=== PATIENT | male | born 1965 | race Caucasian/White ===

== ENCOUNTER 2019-09-12 11:33 | Emergency (ER) | payer OTHER, SELFPAY ==
[2019-09-12 11:39] VITALS: BP 152/95; PULSE 88; RESP 15; TEMP 36.2; O2SAT 98; BMI 23.3
--- NOTE | 2019-09-12 11:53 | PC.NURSE ---
Pts wound irrigated and 3 kaveh placed by Ami Avalos
--- NOTE | 2019-09-12 11:55 | ED.HEATRA ---
HPI - Head Injury <NIMO Jose - Last Filed: 09/12/19 12:05> General Chief complaint: Head Injury Stated complaint: hit head Time Seen by Provider: 09/12/19 11:36 Source: patient Mode of arrival: Ambulatory Limitations: no limitations History of Present Illness HPI Narrative: 54-year-old healthy male presents to emergency department complaining of laceration to the back of his head. He states he slipped on the stairs about an hour ago and hit the back of his head on the stairs. He denies any syncope, vomiting, dizziness, neck pain, diarrhea, abdominal pain, chest pain, shortness of breath, or other concerns. Fall was not witnessed. He was able to get up from the fall immediately. He reports a small laceration on a the back of his head, a friend cleaned and irrigated the wound. Patient denies taking any blood thinners. Related Data Allergies Allergy/AdvReac Type Severity Reaction Status Date / Time naproxen [From ALEVE] Allergy Unknown Verified 09/12/19 11:39 Review of Systems <NIMO Jose - Last Filed: 09/12/19 12:05> Review of Systems Narrative: REVIEW OF SYSTEMS: GENERAL: Denies fever or chills. HENT: Reports head laceration, see HPI EYES: No loss of vision, double vision, eye pain, or irritation. CARDIOVASCULAR: No chest pain or syncope. RESPIRATORY: No shortness of breath or cough. GASTROINTESTINAL: No nausea, vomiting, diarrhea, or constipation. GENITOURINARY: No flank pain or dysuria. MUSCULOSKELETAL: No pain, weakness, or deformities. INTEGUMENTARY: No rash, lesions, or pruritus. NEURO: No numbness, tingling, memory loss, or confusion. PSYCH: No behavior or mood changes. Patient History <NIMO Jose - Last Filed: 09/12/19 12:05> Medical History Lyme disease (Chronic) Surgical History History of vasectomy Family History Mother Age: 82 Heart disease Social History Smoking Status: Never smoker Smoking Status: Never smoker alcohol intake frequency: holidays/special occasions only Substance Use Type: does not use Exam <NIMO Jose - Last Filed: 09/12/19 12:05> Initial Vital Signs Initial Vital Signs: Vital Signs Temperature 97.1 F L 09/12/19 11:39 Pulse Rate 88 09/12/19 11:39 Respiratory Rate 15 09/12/19 11:39 Blood Pressure 152/95 H 09/12/19 11:39 Pulse Oximetry 98 09/12/19 11:39 PHYSICAL EXAMINATION: GENERAL: Well groomed, alert, and cooperative. Answers questions promptly and appropriately. Vital signs noted. HENT: Normocephalic, No palpated skull fractures. There is a 3 cm laceration to occipital area of head, small surrounding hematoma, slight tenderness with palpation. Bleeding controlled. Wound irrigated with normal saline. Ear canals patent. Oral mucosa is pink and moist. EYES: PERRLA, EOMIs Conjunctiva pink, sclera white, no periorbital swelling. CHEST: Normal to inspection and without deformities. CARDIOVASCULAR: S1 and S2 sounds normal. Regular rate and rhythm, no murmurs, clicks, or bruits. No pedal edema. RESPIRATORY: Normal respiratory rate, trachea midline, airway patent. No stridor, nasal flaring or accessory muscle use. Lungs are clear in all cross without wheeze, rhonchi, or crackles. GASTROINTESTINAL: Bowel sounds normoactive. Abdomen is soft and non-tender. No organomegaly. MUSCULOSKELETAL: Normal gait and coordination. Equal tone and mass bilaterally. EXTREMITIES: CMS intact. Moves all extremities. SKIN: Warm, dry, soft, appropriate color for ethnicity. No lesions, rashes, or wounds. NEURO: Alert and Oriented X 3. Good coordination. CN II-XIII intact. No ataxia, or sensory deficits, or cognitive issues. GCS 15. PSYCH: Appropriate affect and mood. <Georgette Lambert DO - Last Filed: 09/15/19 07:32> Initial Vital Signs Initial Vital Signs: Vital Signs Temperature 97.1 F L 09/12/19 11:39 Pulse Rate 88 09/12/19 11:39 Respiratory Rate 15 09/12/19 11:39 Blood Pressure 152/95 H 09/12/19 11:39 Pulse Oximetry 98 09/12/19 11:39 Procedures <NIMO Jose - Last Filed: 09/12/19 12:05> Laceration Repair Laceration 1: Site: scalp Size (cm): 3 Description: linear Depth: simple, single layer Pre-repair: irrigated extensively Skin layer closed with: kaveh Size (cm): 3-0 Technique: simple, interrupted Scores <NIMO Jose - Last Filed: 09/12/19 12:05> GCS Reubens coma scale eye opening: Spontaneous Pipe coma scale verbal response: Orientated Reubens coma scale motor response: Obey commands Pipe coma scale total score: 15 Nexus Score for C-Spine Focal Neurologic deficit present: No Midline spinal tenderness present: No Altered level of conciousness present: No Intoxication present: No Distracting Injury Present: No Nexus Criteria for C-spine: 0 Course <NIMO Jose - Last Filed: 09/12/19 12:05> Vital Signs Vital signs: Vital Signs - 8 hr 09/12/19 11:39 Temperature 97.1 F L Pulse Rate 88 Respiratory Rate 15 Blood Pressure 152/95 H Pulse Oximetry 98 <Georgette Lambert DO - Last Filed: 09/15/19 07:32> Vital Signs Vital signs: Vital Signs - 8 hr 09/12/19 11:39 Temperature 97.1 F L Pulse Rate 88 Respiratory Rate 15 Blood Pressure 152/95 H Pulse Oximetry 98 [facility] - Head Injury <INMO Jose - Last Filed: 09/12/19 12:05> Medical Records Attestation: I reviewed the patient's medical records. Lab Data Attestation: I reviewed the patient's lab results. [facility] Narrative Medical decision making narrative: This is a healthy 54-year-old male presenting for evaluation head injury with a small laceration repair. GCS of 15, without syncope or vomiting. No blood thinners. C-spine cleared with nexus criteria. Less concern for cranial bleed or skull fracture due to normal findings as mentioned above. Patient appears to have no other distracting injuries. Laceration was repaired with kaveh, patient tolerated this well. Patient was offered lidocaine before stables, but he declined. Patient was counseled extensively about warning signs of worsening concussion and to return emergency department immediately if these occur. Patient and agreed with plan of care verbalized understanding. Discharge Plan Departure Patient Disposition: Home Clinical Impression: Laceration of head Qualifiers: Encounter type: initial encounter Location of open wound of head: scalp Foreign body presence: without foreign body Qualified Code(s): S01.01XA - Laceration without foreign body of scalp, initial encounter Discharge Date/Time: 09/12/19 12:01 Instructions: Concussion, DI for Laceration Repair -- [place] Activity Restrictions/Additional Instructions: Thank you for entrusting me with your care today. As discussed, 3 kaveh were placed in your laceration. Please keep the area dry and clean for the most part, may shower in 24 hours. You can apply Bacitracin or Neosporin to the area daily. Please follow-up with your primary care provider in approximately 7 days for staple removal. You may feel more tired and may develop a headache later this evening. You can use Tylenol and ibuprofen for pain. Return emergency department for new or worsening symptoms such as vomiting, slurred speech, gait difficulty, speech difficulty, syncope, or other concerns. Referrals: Adilene Toledo MD [Primary Care Provider] -
== END 2019-09-12 12:01 | disposition home or self-care (01) ==
PROVIDERS: Emergency Provider Nurse Practitioner; PCP Family Medicine
DX: S01.01XA Laceration without foreign body of scalp, initial encounter (principal); W10.9XXA Fall (on) (from) unspecified stairs and steps, initial encounter
CPT/HCPCS: 12002; 99281; 99282

== ENCOUNTER → 2020-09-02 15:39 | Outpatient (CLI) | payer OTHER, SELFPAY ==
--- NOTE | 2020-09-02 15:42 | DI.RAD.S_ITS ---
PROCEDURE: XR FOOT RT MIN 3V INDICATIONS: right toe pain at 5th MTP joint TECHNIQUE: 3 views of the foot were acquired. COMPARISON: None. FINDINGS: Bones: No fractures or dislocations. No suspicious bony lesions. Numerous chronic os peroneum. Subchondral lucency at the 4th metatarsal head. This raises the possibility of subtle articular surface collapse. Soft tissues: No tibiotalar joint effusion. Achilles tendon appears normal. IMPRESSION: Small subchondral lucency involving the 4th metatarsal head raising possibility of early [place] infraction Elsewhere, unremarkable examination. If the patient's pain or other symptoms persist, consider further evaluation with MRI Dictated by: Kaun Connelly M.D. on 09/02/2020 at 15:54 Approved by: Kanu Connelly M.D. on 09/02/2020 at 15:58
== END ==
PROVIDERS: PCP Family Medicine; Referring Provider Family Medicine; Visit Provider Family Medicine
DX: M79.674 Pain in right toe(s) (principal)
CPT/HCPCS: 73630

== ENCOUNTER → 2020-09-06 08:13 | Outpatient (CLI) | payer OTHER, SELFPAY ==
--- NOTE | 2020-09-06 08:14 | DI.MRI.S_ITS ---
PROCEDURE: MR FOOT RT WO CON INDICATIONS: inconclusive xray TECHNIQUE: Noncontrast sagittal T1 spin echo and T2 fast spin echo with fat saturation, long-axis T1 spin echo and T2 fast spin echo with fat saturation, short-axis T1 spin echo and T2 fast spin echo with fat saturation through the forefoot. COMPARISON: [facility], , XR FOOT RT MIN 3V, 09/02/2020, 16:41. FINDINGS: Image quality: Excellent. Bones and joints: No bone marrow contusions or metatarsal stress fractures. The sesamoid bones appear in expected positions, without internal edema. No metatarsophalangeal joint degeneration. No intraosseous lesions. Benign-appearing subcortical cyst formation in 4th metatarsal head and measures 3 millimeter in size. No surrounding edema or cortical disruption. No periosteal reaction. Soft tissues: The visualized plantar foot muscles demonstrate normal signal and bulk. Visualized flexor and extensor tendons appear intact, without tenosynovitis. The distal insertions of the peroneus brevis and longus tendons appear intact. The principal Lisfranc ligament appears intact. No soft tissue ganglion cysts or bursal fluid collections. Sagittal images demonstrate no evidence for plantar plate tears. IMPRESSION: 1. Nonspecific subcortical cyst formation in 4th metatarsal head without surrounding edema or cortical destruction to suggest osteonecrosis. No fracture or dislocation. 2. Forefoot tendons and ligaments are grossly intact. Dictated by: Unruly Wong M.D. on 09/06/2020 at 10:09 Approved by: Unruly Wong M.D. on 09/06/2020 at 11:21
== END ==
PROVIDERS: PCP Family Medicine; Referring Provider Family Medicine; Visit Provider Family Medicine
DX: M79.672 Pain in left foot (principal)
CPT/HCPCS: 73718

== ENCOUNTER 2024-05-02 05:15 | Emergency (ER) | payer OTHER, SELFPAY ==
[2024-05-02 05:22] VITALS: BP 155/90; PULSE 66; RESP 16; TEMP 36.4; O2SAT 98; BMI 23.3
--- NOTE | 2024-05-02 05:23 | EKG_ITS ---
[address] [address] Test Date: 2024-05-02 Pat Name: Camron Alanis Department: Room: Gender: Male Cytometry Technologist: AISLINN : 1965 Requested By: Order Number: [id number] Reading MD: Brain Marina MD Measurements Intervals [place] Rate: 72 P: 66 TN: 156 QRS: -22 QRSD: 96 T: 49 QT: 402 QTc: 440 Interpretive Statements Normal sinus rhythm with sinus arrhythmia Septal infarct , age undetermined Electronically Signed On 05-02-2024 7:26:09 PDT by Brain Marina MD
[2024-05-02 05:26] VITALS: PULSE 68; O2SAT 99
[2024-05-02 05:28] VITALS: BP 155/90; PULSE 71; RESP 15; O2SAT 98
--- NOTE | 2024-05-02 05:28 | ED_ITS ---
HPI - Chest Pain General Chief Complaint: Chest Pain Stated Complaint: feel dizzy, chest pain, lightheaded Time Seen by Provider: 05/02/24 05:18 History of Present Illness HPI narrative: 59-year-old male with history of hyperlipidemia presents by private vehicle from home for right-sided squeezing chest pain. Patient states this happened yesterday evening while resting at home. Pain is constant, does not radiate, nothing seems to make it better or worse. Took an aspirin last night without change in symptoms. Reports history of cardiac disease in his mother, including a quadruple bypass at 75 years old. Several other cousins have history of heart problems. Denies personal history of heart problems or coronary disease. Related Data Previous Rx's Medication Instructions Recorded atorvastatin 20 mg tablet 20 mg PO DAILY #90 tabs 06/11/21 Allergies Allergy/AdvReac Type Severity Reaction Status Date / Time naproxen [From ALEVE] Allergy Unknown Verified 07/25/23 15:16 Patient History Medical History Hyperlipidemia Lyme disease Surgical History History of vasectomy Family History Mother Age: 87 Heart disease Social History Smoking Status: Never smoker Smoking Status: Never smoker alcohol intake frequency: holidays/special occasions only Substance Use Type: does not use Exam Initial Vital Signs Initial Vital Signs: Vital Signs Temperature 97.6 F 05/02/24 05:22 Pulse Rate 66 05/02/24 05:22 Respiratory Rate 16 05/02/24 05:22 Blood Pressure 155/90 H 05/02/24 05:22 Pulse Oximetry 98 05/02/24 05:22 Oxygen Delivery Method Room Air 05/02/24 05:22 Const: Awake, alert, no acute distress, nontoxic appearing Cardiac: regular rate, regular rhythm, no murmurs RESP: unlabored, clear bilaterally, no wheezing Skin: Warm, Dry, intact, no rashes Neuro: AO x3, CN II-XII grossly intact, moves all extremities Course Orders Ordered: ED Orders 05/02/24 05:23 EKG-12 Lead Stat 05/02/24 05:30 CBC Auto Diff [Complete Blood Count AUTO DIFF] Stat CMP [Comprehensive Metabolic Panel] Stat PT [Prothrombin Time INR] Stat Troponin & CK Cardiac Panel Stat Vital Signs Vital signs: Vital Signs - 8 hr 05/02/24 05:22 05/02/24 05:26 05/02/24 05:28 Temperature 97.6 F Pulse Rate 66 68 71 Respiratory Rate 16 15 Blood Pressure 155/90 H Pulse Oximetry 98 99 98 Oxygen Delivery Method Room Air 05/02/24 05:28 05/02/24 05:30 05/02/24 05:30 Temperature Pulse Rate 72 Respiratory Rate 15 Blood Pressure 155/90 H 155/89 H Pulse Oximetry 99 Oxygen Delivery Method 05/02/24 06:00 05/02/24 06:00 05/02/24 06:30 Temperature Pulse Rate 64 62 Respiratory Rate 16 19 Blood Pressure 154/94 H Pulse Oximetry 98 97 Oxygen Delivery Method 05/02/24 06:30 Temperature Pulse Rate Respiratory Rate Blood Pressure 150/92 H Pulse Oximetry Oxygen Delivery Method MDM - Chest Pain Differential Diagnosis Differential diagnosis: Likely atypical chest pain, costochondritis and chest pain Lab Data 05/02/24 05:30 05/02/24 05:30 Labs: Lab Results 05/02/24 Range/Units 05:30 WBC 5.3 (4.5-11.0) X10^3/uL RBC 4.57 (4.5-5.9) X10^6/uL Hgb 14.9 (13.5-17.5) g/dL Hct 44.2 (41-53) % MCV 96.6 (80-100) fL MCH 32.5 (26-34) PG MCHC 33.7 (30-36) % RDW 13.2 (11.6-14.8) % Plt Count 159 (150-400) X10^3/uL Neut % (Auto) 42.6 L (50-75) % Lymph % (Auto) 42.7 H (25-40) % [place] % (Auto) 12.1 (3-14) % Eos % (Auto) 1.6 L (2-4) % Baso % (Auto) 1.0 (0-2) % Neut # (Auto) 2300 (8306-7765) /uL Lymph # (Auto) 2300 (1414-3574) /uL [place] # (Auto) 600 (0-900) /uL Eos # (Auto) 100 (0-450) /uL Baso # (Auto) 100 (0-100) /uL PT 12.2 (9.4-12.5) SECONDS INR 1.1 (0.9-1.3) Sodium 136 L (137-145) mmol/L Potassium 3.7 (3.4-5.1) mmol/L Chloride 105 (98-107) mmol/L Carbon Dioxide 24 (22-32) mmol/L BUN 27 H (9-20) mg/dL Creatinine 0.93 (0.66-1.25) mg/dL Estimated GFR > 60 (>60) mL/min BUN/Creatinine Ratio 29.0 H (6-22) Glucose 125 H (70-100) mg/dL Calcium 8.9 (8.4-10.2) mg/dL Total Bilirubin 0.6 (0.2-1.3) mg/dL AST 33 (17-59) IU/L ALT 28 (<50) IU/L Alkaline Phosphatase 67 (38-126) U/L Total Creatine Kinase 203 H (55-170) U/L Troponin I < 0.012 (0.01-0.034) ng/mL Total Protein 7.0 (6.3-8.2) g/dL Albumin 4.1 (3.5-5.0) g/dL Globulin 2.9 (1.7-4.1) g/dL Albumin/Globulin Ratio 1.4 (1.0-2.8) ECG Data Interpretation: Normal sinus rhythm at 72 beats per minute. Normal [place], no ST T wave changes, no STEMI MDM Narrative Medical decision making narrative: Well-appearing patient with right-sided chest pain for 1 night. Physical exam is reassuring, no significant abnormalities identified. Laboratory work, EKG, chest x-ray ordered. Patient declined chest x-ray, stating that he was concerned about cost and stating that he would like to wait until blood work resulted. I explained that blood work would not necessarily rule out acute findings on chest x-ray, and can screen for masses or other abnormalities, however patient continued to declined stating that he would only like to do EKG and blood work at this time. Laboratory work unremarkable. Troponin undetectable. Patient counseled on lab and EKG findings. Patient counseled to follow up with his primary care doctor. ED return precautions discussed. Discharge Plan Departure Patient Disposition: Home Clinical Impression: Chest pain Instructions: DI for Atypical Chest Pain Activity Restrictions/Additional Instructions: Your laboratory work and EKG today appeared normal. There were no signs of stress on your heart. A chest x-ray was not obtained today, you can discuss getting a chest x-ray with your primary care doctor. If your symptoms return, worsen, or change in any way it was concerning to you please return to the emergency department for repeat evaluation. Prescriptions: No Action atorvastatin 20 mg tablet 20 mg PO DAILY Qty: 90 0RF Referrals: Adilene Toledo MD [Primary Care Provider] - Stand Alone Forms: Patient Portal/API
[2024-05-02 05:30] VITALS: BP 155/89; PULSE 72; RESP 15; O2SAT 99
[2024-05-02 05:45] LABS: Add Manual Diff / Slide Review NO; Basophils Absolute Auto 100 /uL (0-100); Eosinophils Absolute Auto 100 /uL (0-450); Eosinophils Percent Auto 1.6 % (2-4); Hematocrit 44.2 % (41-53); Hemoglobin 14.9 g/dL (13.5-17.5); Lymphocytes Absolute Auto 2300 /uL (1100-4500); Lymphocytes Percent Auto 42.7 % (25-40); Mean Corpuscular HGB Conc 33.7 % (30-36); Mean Corpuscular Hemoglobin 32.5 PG (26-34); Mean Corpuscular Volume 96.6 fL (80-100); Monocytes Absolute Auto 600 /uL (0-900); Monocytes Percent Auto 12.1 % (3-14); Neutrophils Absolute Auto 2300 /uL (1500-7000); Neutrophils Percent Auto 42.6 % (50-75); Platelet Count 159 X10^3/uL (150-400); Red Blood Cell Count 4.57 X10^6/uL (4.5-5.9); Red Cell Distribution Width 13.2 % (11.6-14.8); White Blood Cell Count 5.3 X10^3/uL (4.5-11.0)
[2024-05-02 05:49] LABS: INR 1.1 (0.9-1.3); Prothrombin Time 12.2 SECONDS (9.4-12.5)
[2024-05-02 05:53] LABS: Alanine Aminotransferase 28 IU/L (<50); Albumin 4.1 g/dL (3.5-5.0); Albumin Globulin Ratio 1.4 (1.0-2.8); Alkaline Phosphatase 67 U/L (38-126); Aspartate Aminotransferase 33 IU/L (17-59); Bilirubin Total 0.6 mg/dL (0.2-1.3); Blood Urea Nitrogen 27 mg/dL (9-20); Calcium 8.9 mg/dL (8.4-10.2); Carbon Dioxide 24 mmol/L (22-32); Chloride 105 mmol/L (98-107); Creatine Kinase 203 U/L (55-170); Estimated Glomerular Filt Rate > 60 mL/min (>60); Globulin 2.9 g/dL (1.7-4.1); Glucose 125 mg/dL (70-100); HEMOLYSIS 26 (0-50); Potassium 3.7 mmol/L (3.4-5.1); Sodium 136 mmol/L (137-145)
[2024-05-02 06:00] VITALS: BP 154/94; PULSE 64; RESP 16; O2SAT 98
[2024-05-02 06:05] LABS: Troponin I < 0.012 ng/mL (0.01-0.034)
[2024-05-02 06:30] VITALS: BP 150/92; PULSE 62; RESP 19; O2SAT 97
== END 2024-05-02 06:45 | disposition home or self-care (01) ==
PROVIDERS: Emergency Provider Emergency Medicine; PCP Family Medicine
DX: R07.9 Chest pain, unspecified (principal)
CPT/HCPCS: 36415; 80053; 82550; 84484; 85025; 85610; 93005; 93010; 99283; 99284